=== PATIENT | female | born 1970 | race Two or more races ===

== ENCOUNTER 2024-10-16 18:00 | Emergency (ER) | payer MEDICAID, SELFPAY ==
[2024-10-16 18:47] VITALS: BP 147/87; PULSE 75; RESP 19; TEMP 37; O2SAT 98; BMI 26.6
--- NOTE | 2024-10-16 19:14 | XR_ITS ---
Examination: CT abdomen and pelvis without contrast. Coronal 3-D reconstructions. Sagittal 2-D reconstructions. Date and time of exam:October 16, 2024 2107 hrs. Indications: Back pain right flank pain beginning 12 hours ago, history kidney stones CTDI: vol (mGy): 55 DLP: (mGycm): 438 Technique: Axial images of the abdomen have been obtained, 3 mm slice thickness Intravenous contrast material has not been administered. Low dose protocols were performed. One or more of the following dose reduction techniques were used; automated exposure control, adjustment of the mA and/or KV according to patient size, use of iterative reconstruction technique. Findings: No focal liver or splenic lesions No gallstones No pancreatic mass 5 mm lower pole left renal calculus, no hydronephrosis or ureteral calculi No pericecal inflammatory change No bowel obstruction Urinary bladder intact Advanced disc narrowing L5-S1 Anteverted uterus no pelvic mass Impression: 5 mm nonobstructing lower pole left renal calculus
--- NOTE | 2024-10-16 19:15 | PD.EDRME ---
Rapid Medical Screening Exam RME Arrival date/time: 10/16/24 18:00 53F with history of frequent kidney stones presents to ED with several days of R flank pain that radiates to groin area. Patient states this feels like a kidney stone again. Separately, patient also has neck pain w/o fall/trauma, but denies CP and SOB. Chief Complaint: Abdominal Pain Vital signs: Vital Signs Temperature 98.6 F 10/16/24 18:47 Pulse Rate 75 10/16/24 18:47 Respiratory Rate 19 10/16/24 18:47 Blood Pressure 147/87 H 10/16/24 18:47 Pulse Oximetry (%) 98 10/16/24 18:47 Oxygen Delivery Method Room Air 10/16/24 18:47
[2024-10-16 19:34] LABS: Collection Type, Urine Clean Catch
[2024-10-16 19:50] LABS: Eosinophils # (Auto) 0.1 Thou/mm3 (0.0-0.5); Eosinophils % (Auto) 1 % (0-10); Immature Granulocytes % (Auto) 0 % (0-0); Lymphocytes # (Auto) 2.4 Thou/mm3 (1.0-4.8); Mean Corpuscular Volume 95 fL (80-100); Monocytes # (Auto) 0.5 Thou/mm3 (0.0-0.8); Monocytes % (Auto) 7 % (0-12); Nucleated Red Blood Cell % 0 /100 WBC (0)
[2024-10-16 19:52] LABS: Basophils % (Auto) 1 % (0-2.5); Hematocrit 34.8 % (36.0-46.0); Hemoglobin 12.1 g/dL (12.0-16.0); Immature Granulocytes Auto 0.01 Thou/mm3 (0.00-0.00); Lymphocytes % (Auto) 34 % (10-50); Mean Corpuscular HGB Conc 34.8 g/dl (31.0-37.0); Neutrophils % (Auto) 57 % (37-80); Platelet Count 133 Thou/mm3 (140-440); RDW Standard Deviation 43.4 fL (36.4-46.3); Red Blood Count 3.67 Miln/mm3 (4.00-5.20); White Blood Count 7.1 Thou/mm3 (3.6-11.0)
[2024-10-16 19:54] LABS: Bilirubin,Urine Negative (Negative); Blood,Urine 2+ (Negative); Clarity,Urine Clear (Clear/Hazy); Color,Urine Colorless (Lt Yel-Yel); Culture Indicated,Urine Not Indicated; Glucose, Urine Negative (Negative); Ketones,Urine Negative (Negative); Leukocyte Esterase,Urine Negative (Negative); Nitrite,Urine Negative (Negative); Protein,Urine Negative (Neg - Trace); RBC,Urine 17 /hpf (0-3); Specific Gravity,Urine 1.011 (1.001-1.035); Squamous Epithelial Cell,Urine < 1 /hpf (0-5); Urobilinogen,Urine Negative mg/dL (0.0-1.0); WBC,Urine 5 /hpf (0-5)
--- NOTE | 2024-10-16 20:10 | XR_ITS ---
Examination: Abdomen sonogram, Limited Date and time of exam: October 16, 2024 10:24 PM Indications: Right upper abdominal pain and tenderness with nausea today Technique: Real-time abreu scale transabdominal sonographic images of the upper abdomen obtained. Findings: Negative for gallstones Gallbladder wall 0.3 cm no edema Common bile duct 0.2 cm Pancreatic head 2.9 cm Liver 10.1 cm no liver lesions Normal hepatopedal portal venous flow Patent IVC Impression: Negative for cholelithiasis, negative for cholecystitis Liver normal size
[2024-10-16 20:12] LABS: Alanine Aminotransferase 20 U/L (10-49); Albumin, Serum 5.1 gm/dL (3.5-5.0); Albumin/Globulin Ratio 1.5 (1.2-2.2); Alkaline Phosphatase 84 U/L (46-116); Anion Gap 6 (7-16); Aspartate Amino Transferase 34 U/L (0-34); BUN/Creatinine Ratio 23 Ratio (12-20); Bilirubin,Total 0.5 mg/dL (0.3-1.2); Blood Urea Nitrogen 18 mg/dL (9-23); Carbon Dioxide 26.2 mMol/L (20.0-31.0); Chloride 105 mMol/L (98-107); Creatinine (Component) 0.8 mg/dL (0.6-1.3); Estimated Creatinine Clearance 80.2 mL/min (>60); Globulin 3.5 gm/dL (2.3-3.5); Glucose 116 mg/dL (74-106); Lipase 44 U/L (12-53); Osmolality,Calculated 276 (275-295); Potassium 4.8 mMol/L (3.4-5.1); Sodium 137 mMol/L (136-145); Total Protein 8.6 gm/dL (5.7-8.2); eGFR > 60 See Note
[2024-10-16 20:14] LABS: HCG Qualitative,Urine Negative
[2024-10-16] MEDS: ONDANSETRON INJ 2 MG/ML INJ 2 ML 4 MG IV (20:16)
[2024-10-16] MEDS: KETOROLAC INJ 30 MG/ML VIAL IVP (20:16)
[2024-10-16] MEDS: MORPHINE SULF INJ 10 MG/ML VIAL 4 MG IVP (20:16)
[2024-10-16 20:19] VITALS: BP 144/68; PULSE 80; RESP 18; TEMP 37.1; O2SAT 100
[2024-10-16 20:37] LABS: Amylase 98 U/L (30-118); Magnesium 1.9 mg/dL (1.6-2.6)
[2024-10-16 22:41] VITALS: BP 121/60; PULSE 67; RESP 18; O2SAT 96
[2024-10-17 00:24] VITALS: BP 105/87; PULSE 87; RESP 19; TEMP 36.5; O2SAT 99
--- NOTE | 2025-01-02 12:25 | PD.EDABDPN ---
ED Abdominal Pain RME/HPI General Chief Complaint: Abdominal Pain Stated complaint: STOMACH AND BACK NECK PAIN X AM Time seen by provider: 10/16/24 19:44 Arrival date/time: 10/16/24 18:00 RME / HPI RME / HPI narrative: 10/16/24 18:00 53F with history of frequent kidney stones presents to ED with several days of R flank pain that radiates to groin area. Patient states this feels like a kidney stone again. Separately, patient also has neck pain w/o fall/trauma, but denies CP and SOB. This section includes all my notes and documentations, including HPI, PE, and ED course.? Jared Garcia MD HPI: 53 year old female here with a few day history of right-sided upper abdominal pain. ROS: All negative except as documented in HPI. Physical Exam: General:? Alert and oriented.? No acute distress when remaining still.?? Eyes:? Conjunctivae and lids clear.? ENT:? No nasal congestion.? Neck:? Supple.? Heart:? RRR.? Lungs:? No respiratory distress.? Good air movement.? No rhonchi, wheezing, rales.?? Abdomen:? Soft with epigastric tenderness. Legs:? No clubbing, cyanosis, edema.? Skin:? Warm and dry.?? Neuro:? Alert and oriented X 3.?? I reviewed all diagnostic test results. My review of the abdominal CT report is?no acute findings. My review of the GB ultrasound report is no acute findings. Blood tests and urine tests?unremarkable. At this point, diagnoses include?Gastritis. Treatment here included?Zofran and Toradol and Morphine. Significant improvement noted. Prescribed Famotidine and Omeprazole and recommended more outpatient workup. Based on my best medical judgment, made decision no further evaluation or treatment indicated at this time.? Patient understands and agrees to the discharge instructions customized and printed, see below. Discharge instructions from Dr. Garcia: ?After evaluation, your symptoms are due to stomach ulcer (see attached handout).? There is no emergency such as appendicitis needing emergent surgery. ?To help heal the ulcer, take Omeprazole 40 mg every morning and Famotidine 40 mg at bedtime for a month. ?Zofran for nausea/vomiting.? Clear liquid diet for 24 hours.? Then slowly advance diet as tolerated. ?Avoid food and beverages that can trigger and worsen ulcers.? See attached handout. ?See a private doctor on 10/19/2024. To make sure there is no serious underlying abdominal condition, ask to help you get more care not available here in the ER.? Such as EGD or scoping the stomach, colonoscopy or scoping the colon, and a referral to see a stable hand. ?Seek immediate medical care with worsening or with any concerns. Jared Garcia MD Related Data Home Medications ?Medication ?Instructions ?Recorded ?Confirmed lisinopril 20 mg tablet 20 mg PO QDAY 04/09/23 06/23/24 Previous Rx's ?Medication ?Instructions ?Recorded aspirin 81 mg tablet,delayed 81 mg PO QDAY 30 days #30 tabs 06/23/24 release atorvastatin 40 mg tablet 40 mg PO HS 30 days #30 tabs 06/23/24 sumatriptan 10 mg/actuation nasal 10 mg intranasal Q2H PRN migraine 06/24/24 spray headache #6 ea ketorolac 10 mg tablet 10 mg PO Q8H #10 tabs 08/31/24 ondansetron 4 mg disintegrating 4 mg PO Q8H #10 tabs 08/31/24 tablet famotidine 40 mg tablet 40 mg PO QDAY #30 tabs 10/16/24 omeprazole 40 mg capsule,delayed 40 mg PO QDAY #30 caps 10/16/24 release metoprolol succinate 50 mg capsule 50 mg PO QDAY #30 ea 12/02/24 sprinkle, ext. release 24 hr Allergies Allergy/AdvReac Type Severity Reaction Status Date / Time No Known Allergies Allergy Verified 10/16/24 18:02 Course Quality Measures none Orders Category Date Time Status Saline [Insert IV] NOW Care 10/16/24 20:[address] abdomen pelvis wo con Stat Exams 10/16/24 19:14 Completed US gall bladder Stat Exams 10/16/24 20:10 Completed Amylase Stat Lab 10/16/24 19:23 Completed CBC Stat Lab 10/16/24 19:23 Completed CMP [Comprehensive Metabolic Panel] Stat Lab 10/16/24 19:23 Completed HCG Qualitative,Urine Stat Lab 10/16/24 19:29 Completed Lipase Stat Lab 10/16/24 19:23 Completed Magnesium Stat Lab 10/16/24 19:23 Completed Urinalysis, C/S if Indicated Stat Lab 10/16/24 19:29 Completed Ketorolac Inj [Toradol Inj] Med 10/16/24 20:10 Discontinued 30 mg IVP X1 ONE Ketorolac Inj [Toradol Inj] Med 10/16/24 19:14 Discontinued 60 mg IM X1 ONE Morphine Inj Med 10/16/24 20:10 Discontinued 4 mg IVP X1 ONE Ondansetron Inj [Zofran Inj] Med 10/16/24 20:10 Discontinued 4 mg IV X1 ONE Vital Signs Vital signs: Vital Signs Temperature 98.6 F 10/16/24 18:47 Pulse Rate 75 10/16/24 18:47 Respiratory Rate 19 10/16/24 18:47 Blood Pressure 147/87 H 10/16/24 18:47 Pulse Oximetry (%) 98 10/16/24 18:47 Oxygen Delivery Method Room Air 10/16/24 18:47 Abdominal Pain MDM Patient data External records reviewed:: [facility] previous records Clinical information provided by:: patient Social determinants that could affect healthcare access:: none Patient has the following chronic illnesses:: Gastritis How is presenting disease/condition affected by chronic disease/condition?: exacerbated by Evaluation data The following diagnostics were reviewed and interpreted by me:: lab results and radiology exam(s) Lab and/or radiology exams considered but not ordered:: none Interpretation Summary: Gastritis Medications / Prescriptions Medications or Prescriptions considered but not ordered:: none Medication administrations:: Medication Administration History Discontinued Medications Ketorolac Tromethamine (Ketorolac Inj 60 Mg/2 Ml Vial) 60 mg IM X1 ONE Stop: 10/16/24 19:15 Last Admin: 10/16/24 20:13 Dose: Not Given Documented By: EE Non-Admin Reason: Discontinued Ketorolac Tromethamine (Ketorolac Inj 30 Mg/Ml Vial) 30 mg IVP X1 ONE Stop: 10/16/24 20:11 Last Admin: 10/16/24 20:16 Dose: 30 mg Documented By: EE Morphine Sulfate (Morphine Sulf Inj 10 Mg/Ml Vial) 4 mg IVP X1 ONE Stop: 10/16/24 20:11 Last Admin: 10/16/24 20:16 Dose: 4 mg Documented By: EE Ondansetron HCl (Ondansetron Inj 2 Mg/Ml Inj 2 Ml) 4 mg IV X1 ONE; Protocol Stop: 10/16/24 20:11 Last Admin: 10/16/24 20:16 Dose: 4 mg Documented By: KALINA Joyce and Toradol and Moprhine Consultations Consultation(s) initiated? (list below): No Diagnosis Differential diagnosis abdominal pain: acute appendicitis, calculus of kidney, constipation, diverticulitis, endometriosis, gastroenteritis, pancreatitis and small bowel obstruction Most likely diagnosis given after review of the tests above:: Gastritis Admission Indicated Admission indicated?: not indicated Explain why admission is indicated or not indicated:: No criteria for admission Admission Request Was there a request for admission?: No Disposition Plan Disposition Plan: Discharge Discharge Attestation Discharge Attestation: The patient and all family members were given an opportunity to ask questions and understood the discharge instructions. Discharge instructions specifically effects, indications for sooner follow up or return to the emergency department, and the expected course of current diagnosis. Patient condition: Stable Discharge Plan Plan Patient Disposition: HOME (Self Care) Prescriptions/Referrals Prescriptions/Med Rec: New famotidine 40 mg tablet 40 mg PO QDAY Qty: 30 0RF omeprazole 40 mg capsule,delayed release(DR/EC) 40 mg PO QDAY Qty: 30 0RF No Action lisinopril 20 mg Tablet 20 mg PO QDAY aspirin 81 mg Tablet,Delayed Release (Dr/Ec) 81 mg PO QDAY 30 Days Qty: 30 3RF atorvastatin 40 mg tablet 40 mg PO HS 30 Days Qty: 30 3RF sumatriptan 10 mg/actuation spray,non-aerosol 10 mg intranasal Q2H PRN (Reason: migraine headache) Qty: 6 5RF Rx Instructions: administer into one nostril as a single dose; if 2nd dose needed,administer into other nostril after at least 2 hrs, NTE 2 doses (40 mg) per episode ketorolac 10 mg tablet 10 mg PO Q8H Qty: 10 0RF Rx Instructions: maximum total duration of 5 days from all oral, intranasal, or parenteral formulations ondansetron 4 mg tablet,disintegrating 4 mg PO Q8H Qty: 10 0RF metoprolol succinate 50 mg capsule,sprinkle,ER 24hr 50 mg PO QDAY Qty: 30 0RF Referrals: No Primary/Family,Physician [Primary Care Provider] - In 1 week Problem List Clinical Impression: Stomach ulcer Patient/Caregiver Discharge Instructions Discharge Activity: activity as tolerated Education Materials: ED PEPTIC ULCER vs GASTRITIS Additional Instructions: Discharge instructions from Dr. Garcia: ?After evaluation, your symptoms are due to stomach ulcer (see attached handout).? There is no emergency such as appendicitis needing emergent surgery. ?To help heal the ulcer, take Omeprazole 40 mg every morning and Famotidine 40 mg at bedtime for a month. ?Zofran for nausea/vomiting.? Clear liquid diet for 24 hours.? Then slowly advance diet as tolerated. ?Avoid food and beverages that can trigger and worsen ulcers.? See attached handout. ?See a private doctor on 10/19/2024. To make sure there is no serious underlying abdominal condition, ask to help you get more care not available here in the ER.? Such as EGD or scoping the stomach, colonoscopy or scoping the colon, and a referral to see a stable hand. ?Seek immediate medical care with worsening or with any concerns. Print Language: Georgian Stand Alone Forms: [employer] Award Info., Patient Portal Info Letter
== END 2024-10-17 00:25 | disposition home or self-care (01) ==
PROVIDERS: Physician Assistant; Emergency Provider Emergency Medicine
DX: R10.11 Right upper quadrant pain (principal)
CPT/HCPCS: 36415; 74176; 76705; 80053; 81001; 81025; 82150; 83690; 83735; 85025; 96374; 96375; 99284; J1885; J2270; J2405

== ENCOUNTER 2024-12-02 09:50 | Emergency (ER) | payer MEDICAID, SELFPAY ==
--- NOTE | 2024-12-02 10:32 | XR_ITS ---
Examination: CT brain head without contrast. 2-D sagittal coronal reconstructions Date and time of exam:December 02, 2024 1045 hours INDICATIONS: Onset right facial numbness today, history right facial numbness June 22, 2024 CTDI: vol (mGy):49 DLP: (mGycm):929 Technique: Multiple CT axial sections of the brain have been obtained, 5 mm slice thickness. Contrast has not been administered. 2-D sagittal, coronal reconstructions have been obtained Low dose protocols were performed. One or more of the following dose reduction techniques were used; automated exposure control, adjustment of the mA and/or KV according to patient size, use of iterative reconstruction technique. Findings: No significant ventricular enlargement. Intra-axial or extra-axial hemorrhage density is not seen. No mass effect or midline shift Basal cisterns are not remarkable. Fourth ventricle is midline. Cranial vault intact. Impression: Negative for acute hemorrhage, mass effect or midline shift Consider repeat brain MRI follow-up to exclude demyelinating disease
--- NOTE | 2024-12-02 10:32 | EKG_ITS ---
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
--- NOTE | 2024-12-02 10:33 | PD.EDRME ---
Rapid Medical Screening Exam RME Arrival date/time: 12/02/24 09:50 54-year-old female with a history of hyperlipidemia, hypertension presents to the emergency room with a chief complaint of of hemorrhage in her left eye as well as left-sided facial numbness x 1 day. I have greeted and performed a focused initial assessment of this patient. A comprehensive ED assessment and evaluation of the patient, analysis of all test results, and completion of the medical decision making process will be conducted by additional ED providers. Chief Complaint: General Adult/Misc Complain Vital signs reviewed by provider: Yes
[2024-12-02 10:55] VITALS: BP 152/78; PULSE 79; RESP 18; TEMP 36.7; O2SAT 100; BMI 26.6
[2024-12-02 11:25] LABS: Basophils % (Auto) 1 % (0-2.5); Eosinophils # (Auto) 0.1 Thou/mm3 (0.0-0.5); Eosinophils % (Auto) 2 % (0-10); Hematocrit 31.9 % (36.0-46.0); Hemoglobin 11.3 g/dL (12.0-16.0); Immature Granulocytes % (Auto) 0 % (0-0); Immature Granulocytes Auto 0.02 Thou/mm3 (0.00-0.00); Lymphocytes # (Auto) 1.9 Thou/mm3 (1.0-4.8); Lymphocytes % (Auto) 33 % (10-50); Mean Corpuscular HGB Conc 35.4 g/dl (31.0-37.0); Mean Corpuscular Hemoglobin 33.6 pg (25.0-35.0); Mean Corpuscular Volume 95 fL (80-100); Monocytes # (Auto) 0.3 Thou/mm3 (0.0-0.8); Monocytes % (Auto) 5 % (0-12); Neutrophils # (Auto) 3.4 Thou/mm3 (1.8-7.7); Neutrophils % (Auto) 59 % (37-80); Nucleated Red Blood Cell % 0 /100 WBC (0); Platelet Count 112 Thou/mm3 (140-440); RDW Standard Deviation 46.2 fL (36.4-46.3); Red Blood Count 3.36 Miln/mm3 (4.00-5.20); White Blood Count 5.7 Thou/mm3 (3.6-11.0)
[2024-12-02 11:47] LABS: INR 1.1 (0.9-1.3); Prothrombin Time 11.5 Seconds (9.0-12.2)
[2024-12-02 11:49] LABS: Alanine Aminotransferase 21 U/L (10-49); Albumin, Serum 4.5 gm/dL (3.5-5.0); Albumin/Globulin Ratio 1.4 (1.2-2.2); Alkaline Phosphatase 78 U/L (46-116); Anion Gap 11 (7-16); Aspartate Amino Transferase 32 U/L (0-34); BUN/Creatinine Ratio 29 Ratio (12-20); Bilirubin,Total 0.6 mg/dL (0.3-1.2); Blood Urea Nitrogen 20 mg/dL (9-23); Calcium 9.6 mg/dL (8.3-10.6); Calcium (Corrected) 9.6 mg/dL (8.5-10.1); Carbon Dioxide 22.2 mMol/L (20.0-31.0); Chloride 105 mMol/L (98-107); Creatinine (Component) 0.7 mg/dL (0.6-1.3); Estimated Creatinine Clearance 90.6 mL/min (>60); Globulin 3.2 gm/dL (2.3-3.5); Glucose 98 mg/dL (74-106); Magnesium 1.8 mg/dL (1.6-2.6); Osmolality,Calculated 278 (275-295); Potassium 3.8 mMol/L (3.4-5.1); Sodium 138 mMol/L (136-145); Total Protein 7.7 gm/dL (5.7-8.2); Troponin I < 0.002 ng/mL (0.0-0.045); eGFR > 60 See Note
[2024-12-02 12:14] LABS: B-Type Natriuretic Peptide 28 pg/mL (0-100)
[2024-12-02 12:19] LABS: Collection Type, Urine Clean Catch
[2024-12-02 12:27] LABS: Bilirubin,Urine Negative (Negative); Blood,Urine 1+ (Negative); Clarity,Urine Clear (Clear/Hazy); Color,Urine Colorless (Lt Yel-Yel); Glucose, Urine Negative (Negative); Ketones,Urine Negative (Negative); Leukocyte Esterase,Urine Negative (Negative); Nitrite,Urine Negative (Negative); Protein,Urine Negative (Neg - Trace); RBC,Urine 2 /hpf (0-3); Squamous Epithelial Cell,Urine < 1 /hpf (0-5); Urobilinogen,Urine Negative mg/dL (0.0-1.0); WBC,Urine 1 /hpf (0-5)
[2024-12-02 12:33] LABS: Amphetamine/Methamp Scrn,U Negative (Negative); Barbiturate Screen,Urine Negative (Negative); Benzodiazepines Screen,Urine Negative (Negative); Benzoylecgonine Screen, Ur Negative (Negative); Fentanyl Screen,Urine Negative (Negative); Opiate Screen,Urine Negative (Negative); THC Screen,Urine Negative (Negative)
--- NOTE | 2024-12-02 12:38 | EDNOTE_ITS ---
ED General RME/HPI General Chief complaint: General Adult/Misc Complain Stated complaint: REDNESS TO RIGHT EYE, NUMBNESS TO RIGHT FACE Time Seen by Provider: 12/02/24 11:34 Arrival date/time: 12/02/24 09:50 RME / HPI RME / HPI narrative: 12/02/24 09:50 54-year-old female with a history of hyperlipidemia, hypertension presents to the emergency room with a chief complaint of of hemorrhage in her left eye as well as left-sided facial numbness x 1 day. I have greeted and performed a focused initial assessment of this patient. A comprehensive ED assessment and evaluation of the patient, analysis of all test results, and completion of the medical decision making process will be conducted by additional ED providers. This section includes all my notes and documentations, including HPI, PE, and ED course.? Jared Garcia MD HPI: 54 year old female with history of hypertension, hyperlipidemia, CVA presents to the ED for evaluation of left eye redness, nausea, fatigue, and feeling unwell beginning this morning. Additionally complains of left facial numbness. No loss of snesation of function or loss of power of her extremities. Denies fevers, chills, sweats, chest pain, cough, abdominal pain, vomiting, diarrhea, or urinary symptoms. ROS: All negative except as documented in HPI. Physical Exam: General:? Appears tired otherwise alert and oriented. Answering questions. No acute distress when remaining still.?? Eyes:?Left subconjunctival hemorrhage medially, right eye conjunctivae and lids clear.? EOMI. PERRL. ENT:? No nasal congestion.??Pharynx normal. TM normal bilaterally. Neck:? Supple.? No carotid bruit. No JVD. Heart:? RRR.? Lungs:? No respiratory distress.? Good air movement.? No rhonchi, wheezing, rales.?? Abdomen:? Soft and nontender.?? Legs:? No clubbing, cyanosis, edema.? Skin:? Warm and dry.?? Neuro:? Alert and oriented X 3.??Cranial nerves II to XII grossly normal. No peripheral motor deficits. I reviewed all diagnostic test results. My interpretation of the EKG is?sinus rhythm with no acute ST?T changes My review of the head CT report is?no acute findings. Blood tests and urine tests?unremarkable. At this point, diagnoses include?subconjunctival hemorrhage of the left eye and fatigue. Remained stable. Recommended supportive care and more care with PCP. Based on my best medical judgment, made decision no further evaluation or treatment indicated at this time.? Patient understands and agrees to the discharge instructions customized and printed, see below. Discharge Instructions from Dr. Garcia printed for you: 1. After extensive evaluation, there is no life-threatening condition. Such as stroke or brain tumor or heart attack. 2. Your left eye is red from small tiny blood vessels rupturing, probably due to high BP. Your body will reabsorb everything and will go away in a few weeks. 3. To help lower your BP, take metoprolol ER 50 mg every night. You will live longer with lower BP and slower heart rate. 4. See a private doctor on 12/04/2024 for recheck and further care. Ask to review all test results and official radiology reports, to make sure you receive all necessary follow-ups and monitoring. Ask to help you find the cause and treatment of you feeling tired and weak. To make sure there is no serious underlying heart condition, ask to help you get more tests for your heart that cannot be done here in the ER. Such as Holter Monitor (cardiac monitoring at home from a day to even a month), heart stress test (on treadmill or with medication), echocardiogram (imaging of your heart structures), heart catherization (checking for blockages in your heart arteries), and a referral to see a Pediatric Physical Therapist. 5. Seek immediate medical care with worsening or with any concerns. Jared Garcia MD Related Data Home Medications ?Medication ?Instructions ?Recorded ?Confirmed lisinopril 20 mg tablet 20 mg PO QDAY 04/09/23 06/23/24 Previous Rx's ?Medication ?Instructions ?Recorded aspirin 81 mg tablet,delayed 81 mg PO QDAY 30 days #30 tabs 06/23/24 release atorvastatin 40 mg tablet 40 mg PO HS 30 days #30 tabs 06/23/24 sumatriptan 10 mg/actuation nasal 10 mg intranasal Q2H PRN migraine 06/24/24 spray headache #6 ea ketorolac 10 mg tablet 10 mg PO Q8H #10 tabs 08/31/24 ondansetron 4 mg disintegrating 4 mg PO Q8H #10 tabs 08/31/24 tablet famotidine 40 mg tablet 40 mg PO QDAY #30 tabs 10/16/24 omeprazole 40 mg capsule,delayed 40 mg PO QDAY #30 caps 10/16/24 release metoprolol succinate 50 mg capsule 50 mg PO QDAY #30 ea 12/02/24 sprinkle, ext. release 24 hr Allergies Allergy/AdvReac Type Severity Reaction Status Date / Time No Known Allergies Allergy Verified 10/16/24 18:02 Review of Systems Review of Systems Systems Reviewed: All systems reviewed, normal except as documented Past Medical History Past Medical History NEUROLOGIC: Positive Migraine CARDIAC: Positive Hypertension GASTROINTESTINAL: Positive Pancreatitis and Gall Bladder Disease (removed) GENITOURINARY: Positive Kidney Stones REPRODUCTIVE: Positive Previous Pregnancies MUSCULOSKELETAL: Positive Arthritis HEMATOLOGIC: Positive Anemia Family History FAMILY HISTORY: Negative Family Psychiatric Problems, Family Respiratory Disorders, Family Cardiac Disorders, Family Gastrointestinal Problems, Family Cancer or Family Anesthesia Reaction Surgical History SURGICAL: Positive Abdominal Surgery, Tubal Ligation and Section; Negative Cardiac Surgery, Open Heart Surgery, Pacemaker, Endocrine Surgery, Thyroidectomy, Ear Surgery, Joint Replacement, Amputation, Neurologic Surgery or Mastectomy Social History SMOKING STATUS: Current some day smoker SECOND HAND EXPOSURE: No SUBSTANCE USE: does not use ED Exam Narrative Physical exam: As noted in HPI Course Quality Measures none Orders Category Date Time Status EKG (ED ONLY) *Do not use* NOW Care 12/02/24 10:[address] head/brain wo con Stat Exams 12/02/24 10:32 Completed EKG (ED Only) Stat Exams 12/02/24 10:32 Draft B-Type Natriuretic Peptide Stat Lab 12/02/24 10:42 Completed CBC Stat Lab 12/02/24 10:42 Completed Comprehensive Metabolic Panel Stat Lab 12/02/24 10:42 Completed Drug Screen,Urine Stat Lab 12/02/24 12:03 Completed Magnesium Stat Lab 12/02/24 10:42 Completed Partial Thromboplastin Time Stat Lab 12/02/24 10:42 Completed Prothrombin Time with INR Stat Lab 12/02/24 10:42 Completed Troponin I Stat Lab 12/02/24 10:42 Completed Urinalysis Stat Lab 12/02/24 12:03 Completed Vital Signs Vital signs: Vital Signs Temperature 98.0 F 12/02/24 10:55 Pulse Rate 79 12/02/24 10:55 Respiratory Rate 18 12/02/24 10:55 Blood Pressure 152/78 H 12/02/24 10:55 Pulse Oximetry (%) 100 12/02/24 10:55 Oxygen Delivery Method Room Air 12/02/24 10:55 Pulse ox is 100% on room air which is adequate. [facility] Patient data External records reviewed:: [facility] previous records (I reviewed ED visit on 08/31/2024) Clinical information provided by:: patient Social determinants that could affect healthcare access:: none Patient has the following chronic illnesses:: HTN, HLD , CVA How is presenting disease/condition affected by chronic disease/condition?: e xacerbated by Evaluation data The following diagnostics were reviewed and interpreted by me:: lab results, radiology exam(s) and EKG tracing(s) Lab and/or radiology exams considered but not ordered:: None Interpretation Summary: My review of the CT report is?negative for acute hemorrhage, mass effect or midline shift Medications Medications considered but not ordered:: None Medication administrations:: None Consultations Consultation(s) initiated? (list below): No Diagnosis Differential Diagnosis ED Complaint MDM: Headache, migranie, CVA, TIA, viral illness, gastroenteritis Most likely diagnosis given after review of the tests above:: subconjunctival hemorrhage of the left eye Fatigue Admission Indicated Admission indicated?: not indicated Explain why admission is indicated or not indicated:: Does not meet admission criteria Admission Request Was there a request for admission?: No Disposition Plan Disposition Plan: Discharge Discharge Attestation Discharge Attestation: The patient and all family members were given an opportunity to ask questions and understood the discharge instructions. Discharge instructions specifically effects, indications for sooner follow up or return to the emergency department, and the expected course of current diagnosis. Patient condition: Stable Medical Decision Making Differential Diagnosis Differential Diagnosis: Headache, migranie, CVA, TIA, viral illness, gastroenteritis Lab Data 12/02/24 10:42 12/02/24 10:42 Labs: Lab Results 12/02/24 12/02/24 Range/Units 10:42 12:03 WBC 5.7 (3.6-11.0) Thou/mm3 RBC 3.36 L (4.00-5.20) Miln/mm3 Hgb 11.3 L (12.0-16.0) g/dL Hct 31.9 L (36.0-46.0) % MCV 95 (80-100) fL MCH 33.6 (25.0-35.0) pg MCHC 35.4 (31.0-37.0) g/dl RDW Std Deviation 46.2 (36.4-46.3) fL Plt Count 112 L (140-440) Thou/mm3 Neut % (Auto) 59 (37-80) % Lymph % (Auto) 33 (10-50) % [place] % (Auto) 5 (0-12) % Eos % (Auto) 2 (0-10) % Baso % (Auto) 1 (0-2.5) % Neut # (Auto) 3.4 (1.8-7.7) Thou/mm3 Lymph # (Auto) 1.9 (1.0-4.8) Thou/mm3 [place] # (Auto) 0.3 (0.0-0.8) Thou/mm3 Eos # (Auto) 0.1 (0.0-0.5) Thou/mm3 Baso # (Auto) 0.0 (0.0-0.2) Thou/mm3 Immature Gran # (Auto) 0.02 H (0.00-0.00) Thou/mm3 Absolute Nucleated RBC 0.00 (0.00-0.00) Thou/mm3 Immature Gran % 0 (0-0) % Nucleated RBC % 0 (0) /100 WBC PT 11.5 (9.0-12.2) Seconds INR 1.1 (0.9-1.3) APTT 25.0 (22.0-36.0) Seconds Sodium 138 (136-145) mMol/L Potassium 3.8 (3.4-5.1) mMol/L Chloride 105 (98-107) mMol/L Carbon Dioxide 22.2 (20.0-31.0) mMol/L Anion Gap 11 (7-16) BUN 20 (9-23) mg/dL Creatinine 0.7 (0.6-1.3) mg/dL Estim Creat Clear Calc 90.6 (>60) mL/min eGFR > 60 (60 - ) See Note BUN/Creatinine Ratio 29 H (12-20) Ratio Glucose 98 (74-106) mg/dL Calculated Osmolality 278 (275-295) Calcium 9.6 (8.3-10.6) mg/dL Corrected Calcium 9.6 (8.5-10.1) mg/dL Magnesium 1.8 (1.6-2.6) mg/dL Total Bilirubin 0.6 (0.3-1.2) mg/dL AST 32 (0-34) U/L ALT 21 (10-49) U/L Alkaline Phosphatase 78 (46-116) U/L Troponin I < 0.002 (0.0-0.045) ng/mL B-Natriuretic Peptide 28 (0-100) pg/mL Total Protein 7.7 (5.7-8.2) gm/dL Albumin 4.5 (3.5-5.0) gm/dL Globulin 3.2 (2.3-3.5) gm/dL Albumin/Globulin Ratio 1.4 (1.2-2.2) Ur Collection Type Clean Catch Urine Color Colorless A (Lt Yel-Yel) Urine Clarity Clear (Clear/Hazy) Urine pH 6.0 (5.0-7.0) Ur Specific [place] 1.010 (1.001-1.035) Urine Protein Negative (Neg - Trace) Urine Glucose (UA) Negative (Negative) Urine Ketones Negative (Negative) Urine Blood 1+ A (Negative) Urine Nitrite Negative (Negative) Urine Bilirubin Negative (Negative) Urine Urobilinogen (Auto) Negative (0.0-1.0) mg/dL Ur Leukocyte Esterase Negative (Negative) Urine RBC 2 (0-3) /hpf Urine WBC 1 (0-5) /hpf Ur Squamous Epith Cells < 1 (0-5) /hpf Urine Bacteria None (None) Urine Opiates Screen Negative (Negative) Urine Fentanyl Screen Negative (Negative) Ur Barbiturates Screen Negative (Negative) U Amphetamin/Meth Scrn Negative (Negative) U Benzodiazepines Scrn Negative (Negative) U Cocaine Metab Screen Negative (Negative) U Marijuana (THC) Screen Negative (Negative) Discharge Plan Plan Patient Disposition: HOME (Self Care) Prescriptions/Referrals Prescriptions/Med Rec: New metoprolol succinate 50 mg capsule,sprinkle,ER 24hr 50 mg PO QDAY Qty: 30 0RF No Action lisinopril 20 mg Tablet 20 mg PO QDAY aspirin 81 mg Tablet,Delayed Release (Dr/Ec) 81 mg PO QDAY 30 Days Qty: 30 3RF atorvastatin 40 mg tablet 40 mg PO HS 30 Days Qty: 30 3RF sumatriptan 10 mg/actuation spray,non-aerosol 10 mg intranasal Q2H PRN (Reason: migraine headache) Qty: 6 5RF Rx Instructions: administer into one nostril as a single dose; if 2nd dose needed,administer into other nostril after at least 2 hrs, NTE 2 doses (40 mg) per episode ketorolac 10 mg tablet 10 mg PO Q8H Qty: 10 0RF Rx Instructions: maximum total duration of 5 days from all oral, intranasal, or parenteral formulations ondansetron 4 mg tablet,disintegrating 4 mg PO Q8H Qty: 10 0RF famotidine 40 mg tablet 40 mg PO QDAY Qty: 30 0RF omeprazole 40 mg capsule,delayed release(DR/EC) 40 mg PO QDAY Qty: 30 0RF Referrals: Yves Reyez MD [Primary Care Provider] - In 1 week Problem List Clinical Impression: Subconjunctival hemorrhage of left eye, Fatigue Patient/Caregiver Discharge Instructions Discharge Activity: activity as tolerated Education Materials: ED Subconjunctival Hemorrhage, ED Weakness (Uncertain Cause) Additional Instructions: Discharge Instructions from Dr. Garcia printed for you: 1. After extensive evaluation, there is no life-threatening condition. Such as stroke or brain tumor or heart attack. 2. Your left eye is red from small tiny blood vessels rupturing, probably due to high BP. Your body will reabsorb everything and will go away in a few weeks. 3. To help lower your BP, take metoprolol ER 50 mg every night. You will live longer with lower BP and slower heart rate. 4. See a private doctor on 12/04/2024 for recheck and further care. Ask to review all test results and official radiology reports, to make sure you receive all necessary follow-ups and monitoring. Ask to help you find the cause and treatment of you feeling tired and weak. To make sure there is no serious underlying heart condition, ask to help you get more tests for your heart that cannot be done here in the ER. Such as Holter Monitor (cardiac monitoring at home from a day to even a month), heart stress test (on treadmill or with medication), echocardiogram (imaging of your heart structures), heart catherization (checking for blockages in your heart arteries), and a referral to see a Pediatric Physical Therapist. 5. Seek immediate medical care with worsening or with any concerns. Print Language: Swedish Stand Alone Forms: [employer] Award Info., Work/School Release, Patient Portal Info Letter
== END 2024-12-02 13:57 | disposition home or self-care (01) ==
PROVIDERS: Nurse Practitioner Family; Emergency Provider Emergency Medicine; PCP Family Medicine
DX: H11.32 Conjunctival hemorrhage, left eye (principal); R53.83 Other fatigue; I10 Essential (primary) hypertension; F17.200 Nicotine dependence, unspecified, uncomplicated
CPT/HCPCS: 36415; 70450; 80053; 80307; 81001; 83735; 83880; 84484; 85025; 85610; 85730; 93005; 99284

== ENCOUNTER 2025-01-07 10:54 | Emergency (ER) | payer MEDICAID, SELFPAY ==
[2025-01-07 10:54] VITALS: BMI 27.4
[2025-01-07 11:01] VITALS: BP 132/84; PULSE 78; RESP 18; TEMP 36.7; O2SAT 96
--- NOTE | 2025-01-07 11:02 | XR_ITS ---
Examination: Forearm, left, 2 views. Technique: Forearm, AP, lateral 2 views Date and time of exam: January 07, 2025 1105 hours INDICATIONS: Patient fell today with injury to the forearm, forearm pain. FINDINGS: Acute impacted fracture distal radial metaphysis No significant displacement IMPRESSION: Acute impacted fracture distal radial metaphysis
--- NOTE | 2025-01-07 11:02 | XR_ITS ---
Examination: Wrist, left 3 views Technique: Wrist AP, oblique, lateral 3 views Date and time of exam: January 07, 2025 1105 hours INDICATIONS: Patient fell today with into the wrist, wrist pain. FINDINGS: Acute mildly impacted fracture distal radial metaphysis No significant displacement Carpal bones intact IMPRESSION: Acute impacted intra-articular fracture distal radial metaphysis
--- NOTE | 2025-01-07 11:06 | EDNOTE_ITS ---
<Statement entered by Kierra Huang MD - 01/07/25 17:41> As co-signing physician, I was present and available for consult prn. I concur with the plan and care as documented by the midlevel provider. Upper Extremity Injury RME/HPI General Chief Complaint: Extremity Injury, Upper Stated Complaint: LEFT ARM PAIN S/P FALL Time Seen by Provider: 01/07/25 11:03 Source: patient Arrival date/time: 01/07/25 10:54 54-year-old female with no known medical history presents to the emergency room with a chief complaint of left forearm and wrist pain after a fall that occurred 1 hour ago when she fell and tripped on a puddle Mode of arrival: ambulatory Limitations: no limitations Related Data Home Medications ?Medication ?Instructions ?Recorded ?Confirmed lisinopril 20 mg tablet 20 mg PO QDAY 04/09/2306/23 Previous Rx's ?Medication ?Instructions ?Recorded aspirin 81 mg tablet,delayed 81 mg PO QDAY 30 days #30 tabs 06/23/24 release atorvastatin 40 mg tablet 40 mg PO HS 30 days #30 tabs 06/23/24 sumatriptan 10 mg/actuation nasal 10 mg intranasal Q2H PRN migraine 06/24/24 spray headache #6 ea ketorolac 10 mg tablet 10 mg PO Q8H #10 tabs ondansetron 4 mg disintegrating 4 mg PO Q8H #10 tabs 1 tablet famotidine 40 mg tablet 40 mg PO QDAY #30 tabs 10/16 omeprazole 40 mg capsule,delayed 40 mg PO QDAY #30 cap s 10/16/24 release metoprolol succinate 50 mg capsule 50 mg PO QDAY #30 e a 12/02/24 sprinkle, ext. release 24 hr hydrocodone 5 mg-acetaminophen 325 1 tab PO BID PRN pa in #10 tabs 01/07/25 mg tablet Allergies Allergy/AdvReac Type Severity Reaction Status Date / Time No Known Allergies Allergy Verified 01/07/25 10:56 Review of Systems Review of Systems Systems Reviewed: All systems reviewed, normal except as documented Constitutional Constitutional: Reports system reviewed and no additional complaints, except as documented, Denies fatigue, Denies fever(s), Denies headache(s) and Denies weakness Eyes Eyes: Reports system reviewed and no additional complaints, except as documented, Denies blurry vision and Denies change in vision ENT Ears, Nose, Mouth, and Throat: Reports system reviewed and no additional complaints, except as documented, Denies otalgia, Denies headache(s), Denies nasal congestion, Denies throat swelling and Denies vertigo Cardiovascular Cardiovascular: Reports system reviewed and no additional complaints, except as documented, Denies chest pain, Denies dyspnea and Denies dyspnea on exertion Respiratory Respiratory: Reports system reviewed and no additional complaints, except as documented, Denies chest congestion, Denies cough, Denies dyspnea, Denies dyspnea on exertion and Denies wheezing Gastrointestinal Gastrointestinal: Reports system reviewed and no additional complaints, except as documented, Denies abdominal pain, Denies cramping, Denies nausea and Denies vomiting Genitourinary Genitourinary: Reports system reviewed and no additional complaints, except as documented Musculoskeletal Musculoskeletal: Reports system reviewed and no additional complaints, except as documented, Reports arthralgias, Denies back pain, Reports joint swelling and Reports limited range of motion Integumentary/Breasts Skin/Breast: Reports system reviewed and no additional complaints, except as documented and Denies wounds Neurologic Neurologic: Reports system reviewed and no additional complaints, except as documented, Denies confusion, Denies headache(s), Denies lack of coordination, Denies vertigo and Denies weakness Psychiatric Psychiatric: Reports system reviewed and no additional complaints, except as documented, Denies anxiety, Denies confusion, Denies depression, Denies paranoia, Denies suicidal ideation and Denies tactile hallucinations Endocrine Endocrine: Reports system reviewed and no additional complaints, except as documented and Denies fatigue Hematologic/Lymphatic Hematologic/Lymphatic: Reports system reviewed and no additional complaints, except as documented and Denies lymphadenopathy Allergic/Immunologic Allergic/Immunologic: Reports system reviewed and no additional complaints, except as documented, Denies throat swelling, Denies urticaria and Denies wheezing Past Medical History Past Medical History NEUROLOGIC: Positive Migraine; Negative Neurological Disorders, Cerebrovascular Accident, Dementia, Alzheimer's Disease, Seizures, Epilepsy, Head Trauma or Spinal Cord Injury CARDIAC: Positive Hypertension; Negative Cardiac Disorders, Myocardial Infarction, Angina, Congestive Heart Failure or Edema RESPIRATORY: Negative Chronic Obstructive Pulmonary Disease (COPD), Asthma, Emphysema or Tuberculosis GASTROINTESTINAL: Positive Pancreatitis and Gall Bladder Disease (removed); Negative Gastrointestinal Disorders, Liver Cancer or Pancreatic Cancer GENITOURINARY: Positive Kidney Stones; Negative Genitourinary Disorders or Renal Disease REPRODUCTIVE: Positive Previous Pregnancies MUSCULOSKELETAL: Positive Arthritis; Negative Musculoskeletal Disorders, Muscular Dystrophy or Fractures ENT: Negative Cataracts, Blind, Deafness or Head Trauma ENDOCRINE: Negative Endocrine Disorders, Diabetes Mellitus Type 1 or Diabetes Mellitus Type 2 HEMATOLOGIC: Positive Anemia; Negative Blood Disorders or Sickle Cell Disease PSYCHO/SOCIAL: Negative Depression or Anxiety OTHER HISTORY: Negative Hospitalization, Autoimmune Disease, Down Syndrome, Developmental Delay, Shingles, Falls, Blood Transfusions, Blood Transfusion Reaction, Anesthesia Reactions, Organ Transplant, MRSA, VRSA, Vancomycin- Resistant Enterococci, Chicken Pox, Measles, Clostridium Difficile or Cancer Family History FAMILY HISTORY: Negative Family Psychiatric Problems, Family Respiratory Disorders, Family Cardiac Disorders, Family Gastrointestinal Problems, Family Cancer or Family Anesthesia Reaction Surgical History SURGICAL: Positive Abdominal Surgery, Tubal Ligation and Section; Negative Cardiac Surgery, Open Heart Surgery, Pacemaker, Endocrine Surgery, Thyroidectomy, Ear Surgery, Joint Replacement, Amputation, Neurologic Surgery, Mastectomy or Organ Transplant Social History SMOKING STATUS: Current every day smoker SECOND HAND EXPOSURE: No SUBSTANCE USE: does not use ED Exam General Limitations: Present no limitations General appearance: Present alert and in no apparent distress Head Head exam: Present atraumatic Eye Eye exam: Present normal appearance, PERRL and EOMI ENT ENT exam: Present normal exam, normal oropharynx and mucous membranes moist Neck Neck exam: Present normal inspection, full ROM and trachea midline Chest Chest inspection: Present normal inspection and symmetric chest wall rise Respiratory Respiratory exam: Present normal lung sounds bilaterally Cardiovascular Cardiovascular exam: Present regular rate, normal rhythm and normal heart sounds Abdominal Exam Abdominal exam: Present soft and normal bowel sounds Extremities Exam Extremities exam: Present normal inspection and full ROM Expanded Upper Extremity Exam Shoulder exam: Present normal inspection Arm exam: Present normal inspection Elbow exam: Present normal inspection Forearm/Wrist exam: Present tenderness and swelling; Absent full ROM Hand exam: Present tenderness and swelling; Absent full ROM Vascular exam: Normal capillary refill Back Exam Back exam: Present normal inspection and full ROM Neurological Exam Neurological exam: Present alert, oriented X3 and CN II-XII intact Psychiatric Psychiatric exam: Present normal affect and normal mood Skin Skin exam: Present warm, dry, intact and normal color Course Quality Measures none Orders Category Date Time Status Splint / Immobilizer STAT Care 01/07/25 12:55 Active XR forearm LT 2V Stat Exams 01/07/25 11:02 Completed XR wrist comp LT min 3V Stat Exams 01/07/25 11:02 Completed Ketorolac Inj [Toradol Inj] Med 01/07/25 12:55 Discontinued 30 mg IM X1 ONE Vital Signs Vital signs: Vital Signs Temperature 98.1 F 01/07/25 11:01 Pulse Rate 78 01/07/25 11:01 Respiratory Rate 18 01/07/25 11:01 Blood Pressure 132/84 H 01/07/25 11:01 Pulse Oximetry (%) 96 01/07/25 11:01 Oxygen Delivery Method Room Air 01/07/25 11:01 O2 saturation 96% within normal limits Extremity Injury MDM Narrative MDM Narrative:: 54-year-old female with no known medical history presents to the emergency room with a chief complaint of left forearm and wrist pain after a fall that occurred 1 hour ago when she fell and tripped on a puddle Patient is hemodynamically stable in no apparent distress Physical examination shows tenderness and pain to the wrist with palpation. There is an obvious deformity to the wrist. X-ray was completed and shows an acute impacted intra-articular fracture of the distal radial metaphysis. A splint was placed. There were no complications with the splint there is no numbness no tingling and patient has cap refill. A sling was given to the patient patient was educated to follow-up with her primary care provider for referral to a accounts payable specialist. Pain medication was sent to the patient's pharmacy patient was educated return to the emergency room for any evidence of worsening signs or symptoms Patient data External records reviewed:: [facility] previous records Clinical information provided by:: patient Social determinants that could affect healthcare access:: none Patient has the following chronic illnesses:: No chronic illness How is presenting disease/condition affected by chronic disease/condition?: no chronic disease Evaluation data The following diagnostics were reviewed and interpreted by me:: lab results and radiology exam(s) Lab and/or radiology exams considered but not ordered:: Labs and radiology exams considered and ordered Interpretation Summary: Left forearm [id number]: Acute mildly impacted fracture distal radial metaphysis No significant displacement Carpal bones intact IMPRESSION: Acute impacted intra-articular fracture distal radial metaphysis Left wrist x-ray- Medications / Prescriptions Medications or Prescriptions considered but not ordered:: No medication given Medication administrations:: Medication Administration History Discontinued Medications Ketorolac Tromethamine (Ketorolac Inj 60 Mg/2 Ml Vial) 30 mg IM X1 ONE Stop: 01/07/25 12:56 Last Admin: 01/07/25 13:19 Dose: 30 mg Documented By: OA No medication given Consultations Consultation(s) initiated? (list below): No Diagnosis Upper Extremity Injury Differential Diagnosis: sprain and strain of wrist, fracture of wrist and fracture of hand Most likely diagnosis given after review of the tests above:: Fracture of distal radius wrist Admission Indicated Admission indicated?: not indicated Admission Request Was there a request for admission?: No Disposition Plan Disposition Plan: Discharge Discharge Attestation Discharge Attestation: The patient and all family members were given an opportunity to ask questions and understood the discharge instructions. Discharge instructions specifically effects, indications for sooner follow up or return to the emergency department, and the expected course of current diagnosis. Patient condition: Stable Discharge Plan Plan Patient Disposition: HOME (Self Care) Disposition Comment: Stable Prescriptions/Referrals Prescriptions/Med Rec: New hydrocodone-acetaminophen 5-325 mg tablet 1 tab PO BID MDD 10mg PRN (Reason: pain) Qty: 10 0RF No Action lisinopril 20 mg Tablet 20 mg PO QDAY aspirin 81 mg Tablet,Delayed Release (Dr/Ec) 81 mg PO QDAY 30 Days Qty: 30 3RF atorvastatin 40 mg tablet 40 mg PO HS 30 Days Qty: 30 3RF sumatriptan 10 mg/actuation spray,non-aerosol 10 mg intranasal Q2H PRN (Reason: migraine headache) Qty: 6 5RF Rx Instructions: administer into one nostril as a single dose; if 2nd dose needed,administer into other nostril after at least 2 hrs, NTE 2 doses (40 mg) per episode ketorolac 10 mg tablet 10 mg PO Q8H Qty: 10 0RF Rx Instructions: maximum total duration of 5 days from all oral, intranasal, or parenteral formulations ondansetron 4 mg tablet,disintegrating 4 mg PO Q8H Qty: 10 0RF famotidine 40 mg tablet 40 mg PO QDAY Qty: 30 0RF omeprazole 40 mg capsule,delayed release(DR/EC) 40 mg PO QDAY Qty: 30 0RF metoprolol succinate 50 mg capsule,sprinkle,ER 24hr 50 mg PO QDAY Qty: 30 0RF Referrals: Yves Reyez MD [Primary Care Provider] - In 1 week Problem List Clinical Impression: Distal radius fracture, left Patient/Caregiver Discharge Instructions Print Language: Czech Stand Alone Forms: Mar[employer]el Award Info., Patient Portal Info Letter
[2025-01-07] MEDS: KETOROLAC INJ 60 MG/2 ML VIAL 30 MG IM (13:19)
== END 2025-01-07 14:35 | disposition home or self-care (01) ==
PROVIDERS: Emergency Provider Emergency Medicine; PCP Family Medicine
DX: S52.572A Other intraarticular fracture of lower end of left radius, initial encounter for closed fracture (principal); F17.210 Nicotine dependence, cigarettes, uncomplicated; W01.0XXA Fall on same level from slipping, tripping and stumbling without subsequent striking against object, initial encounter
CPT/HCPCS: 73090; 73110; 96372; 99283; J1885